=== PATIENT | female | born 1965 | race Hispanic/Latino ===

== ENCOUNTER 2017-09-23 19:14 | Emergency (ER) | payer MEDICAID ==
[2017-09-23 19:38] VITALS: RESP 16
--- NOTE | 2017-09-23 20:33 | C.PDOC ---
History Of Present Illness 52 y/o female presents to the ED complaining of 2 weeks of painful lump to the left side of neck (contrary to triage note). Patient reports increased pain with movement of neck and dysphagia. She states she had a mass there for the past several years but feels it is growing larger. Denies associated numbness, weakness, chest pain, SOB, cough, vomiting, diarrhea, or fever. Time Seen by Provider: 09/23/17 19:55 Chief Complaint (Nursing): Abnormal Skin Integrity History Per: Patient History/Exam Limitations: no limitations Onset/Duration Of Symptoms: Days (x 2 weeks) Current Symptoms Are (Timing): Still Present Quality Of Symptoms: Swollen Past Medical History Reviewed: Historical Data, Nursing Documentation, Vital Signs Vital Signs: Last Vital Signs Temp 98.7 F 09/24/17 00:52 Pulse 60 09/24/17 00:52 Resp 16 09/24/17 00:52 BP 117/85 09/24/17 00:52 Pulse Ox 97 09/24/17 01:12 - Medical History PMH: Asthma (LAST ATTACK 2 WEEKS AGO), Bipolar Disorder, COPD, HTN, Hypercholesterolemia, Migraine, Rheumatoid Arthritis, Schizophrenia, TIA Denies: Chronic Kidney Disease Other Surgeries: Right knee surgery - [facility] Procedures INJECT/INFUSE NEC (11/08/13) NEBULIZER THERAPY (06/14/13) Family History: States: Unknown Family Hx - Social History Hx Tobacco Use: Yes Hx Alcohol Use: No Hx Substance Use: No Review Of Systems Constitutional: Negative for: Fever ENT: Positive for: Other (left neck mass, +pain, +dysphagia) Cardiovascular: Negative for: Chest Pain Respiratory: Negative for: Cough, Shortness of Breath Gastrointestinal: Negative for: Vomiting, Diarrhea Neurological: Negative for: Weakness, Numbness Physical Exam - Physical Exam Appears: Non-toxic, No Acute Distress Skin: Warm, Dry, No Rash Head: Atraumatic, Normacephalic Eye(s): bilateral: Normal Inspection, PERRL, EOMI Ear(s): Bilateral: Normal Throat: Normal, No Erythema, No Exudate, No Drooling Neck: Paracervical Tenderness (left-sided, + muscular spasm), Other (3 cm tender erythematous mass to the left anterior neck) Chest: Tenderness (left chest wall tenderness) Cardiovascular: Rhythm Regular, No Murmur Respiratory: Normal Breath Sounds, No Rales, No Rhonchi, No Wheezing Gastrointestinal/Abdominal: Soft, No Tenderness, No Guarding, No Rebound Extremity: Bilateral: Atraumatic, Normal ROM Neurological/Psych: Oriented x3, Normal Speech, No Other (focal deficits) Gait: Steady ED Course And Treatment - Laboratory Results Result Diagrams: 09/23/17 20:43 09/23/17 20:43 O2 Sat by Pulse Oximetry: 97 (RA) Pulse Ox Interpretation: Normal - CT Scan/US CT Chest Other Rad Studies (CT/US): Read By Radiologist, Radiology Report Reviewed CT/US Interpretation: FINDINGS: Within the right kidney, there is a large cyst with either an internal septation or a smaller adjacent. cyst. The cyst measures 3.3 x 5.3 cm. Hounsfeld units are slightly greater than typically seen w. simple cyst suggesting internal components may be slightly complex area and followup is. recommended. Multiple smaller subcentimeter hypoattenuating right renal lesions are present also likely cysts. although too small to definitively characterize at this time. Extensive centrilobular emphysematous changes are present in the upper lungs and to a much. lesser the lower lungs. Scarring in the right upper lung. No pulmonary embolism identified on 2.5 mm slice thickness. No aortic dissection or aneurysm. No pleural or pericardial effussions. IMPRESSION: No acute findings. Thank you for allowing us to participate in the care of your patient. Dictated and Authenticated by: Patti Sheikh MD. 09/24/2017 12:18 AM Eastern Time ([place] & [place]) CT neck Other Rad Studies (CT/US): Read By Radiologist, Radiology Report Reviewed CT/US Interpretation: FINDINGS: The sinuses are clear. There is fluid in the right mastoid air cells and in the right middle auditory canal concerning for otitis. media and mastoiditis that could be either acute or chronic. Clinical correlation is recommended. There is a skin BB placed in the left lateral neck. There is a small well circumscribed robles shaped. soft tissue density measuring 1.2 x 0.5 by 1.3 cm underlying the BB-marker in appearance consistent. with lymph node. There is no significant stranding in the surrounding fat to suggest that is inflamed. (lymphadenitis). No abscess. The airway is patent. The osseous structures are normal. The vasculature is normal. IMPRESSION: Fluid in the right auditory canal and right mastoid air cells possible otitis media and mastoiditis. Thank you for allowing us to participate in the care of your patient. Dictated and Authenticated by: Patti Sheikh MD. 09/24/2017 12:32 AM Eastern Time ([place] & [place]) Medical Decision Making Medical Decision Making: Differential Diagnosis includes, but is not limited to: possible abscess vs mass Old records reviewed, the patient has no prior visits from this year or last year. [place] prescription [place] website reviewed and the patient has no prescription of narcotics from this year. Time: 21:33 Plan: * CT Chest * CT Neck Soft Tissue * Blood work * Toradol 30 mg IVP On first re-exam, the patient reports that she continues to have pain Percocet ordered. CT findings discussed with patient in detail, all questions answered. The case was discussed with Dr. Berry (ENT oncall) who states that the patient is has no fever, elevated WBC or symptoms. He reviewed the CT and feels that there is no mastoiditis and only otitis media. Dr. Berry states that patient is able to be discharged home and will follow up outpatient in 1-2 days without fail. Disposition - Disposition Referrals: Isaiah Berry MD [Staff Provider] - Disposition: HOME/ ROUTINE Disposition Time: 01:12 Condition: FAIR Additional Instructions: Follow up with the medical doctor within 1-2 days without fail. Return if worsened. Prescriptions: Acetaminophen/Codeine [Tylenol/Codeine 300 MG/30 MG] 1 tab PO Q8 PRN #10 tab PRN Reason: Pain, Severe (8-10) Clindamycin [Cleocin] 300 mg PO TID #30 cap Instructions: Ear Infections (Otitis Media) (DC) Forms: [employer] (Yi) - Clinical Impression Clinical Impression: Otitis media, Lymphadenopathy - PA / ATG ARCHITECT / Resident Statement MD/DO has reviewed & agrees with the documentation as recorded. - Scribe Statement The provider has reviewed the documentation as recorded by the Scribe (Suzie Green) All medical record entries made by the Scribe were at my direction and personally dictated by me. I have reviewed the chart and agree that the record accurately reflects my personal performance of the history, physical exam, medical decision making, and the department course for this patient. I have also personally directed, reviewed, and agree with the discharge instructions and disposition.
[2017-09-23 20:46] LABS: BASO # 0.1 K/uL (0.0-0.2); BASO % 1.1 % (0.0-2.0); EOS # 0.4 K/uL (0.0-0.7); EOS % 6.1 % (0.0-4.0); HEMOGLOBIN 13.6 g/dL (11.0-16.0); LYMPH # 2.7 K/uL (1.0-4.3); LYMPH % 37.3 % (20.0-40.0); MEAN CELL VOLUME 95.3 fL (81.0-99.0); MEAN CORPUSCULAR HEMOGLOBIN 33.5 pg (27.0-31.0); MEAN CORPUSCULAR HGB CONC 35.2 g/dL (33.0-37.0); MEAN PLATELET VOLUME 8.9 fL (7.2-11.7); MONO # 0.8 K/uL (0.0-0.8); MONO % 10.6 % (0.0-10.0); NEUT # 3.2 K/uL (1.8-7.0); NEUT % 44.9 % (50.0-75.0); NRBC % 0.1 % (0.0-2.0); RBC 4.05 Mil/uL (3.80-5.20); RED CELL DISTRIBUTION WIDTH 13.8 % (11.5-14.5); WHITE BLOOD COUNT 7.1 K/uL (4.8-10.8)
[2017-09-23 20:58] LABS: ALB/GLOB RATIO 1.3 (1.0-2.1); ALT/SGPT 22 U/L (9-52); AST/SGOT 21 U/L (14-36); BLOOD UREA NITROGEN 9 mg/dL (7-17); CALCIUM 9.2 mg/dl (8.6-10.4); GFR AFRICAN-AMERICAN > 60; GFR NON-AFRICAN AMERICAN > 60
[2017-09-23] MEDS ORDERED: Iodixanol 320 MG/ML 100 ML BOTTLE IV ONE (21:55)
[2017-09-23] MEDS ORDERED: Oxycodone/Acetaminophen 5/325 mg Tab PO STA (23:01)
[2017-09-23] MEDS ORDERED: Oxycodone/Acetaminophen 5/325 mg Tab ONE (23:06)
[2017-09-23] MEDS ORDERED: Morphine 4 MG/ML VIAL ONE (23:43)
--- NOTE | 2017-09-24 00:19 | CT ---
EXAM: CT Chest With Intravenous Contrast EXAM DATE/TIME: 09/23/2017 9:49 PM CLINICAL HISTORY: 52 years old, female; Signs and symptoms; Shortness of breath; Additional info: SOB TECHNIQUE: Axial computed tomography images of the chest with intravenous contrast. All CT scans at this facility use one or more dose reduction techniques, viz.: automated exposure control; ma/kV adjustment per patient size (including targeted exams where dose is matched to indication; i.e. head); or iterative reconstruction technique. Coronal and sagittal reformatted images were created and reviewed. CONTRAST: 50 mL of [id number] administered intravenously. COMPARISON: No relevant prior studies available. FINDINGS: Within the right kidney, there is a large cyst with either an internal septation or a smaller adjacent cyst. The cyst measures 3.3 x 5.3 cm. Hounsfeld units are slightly greater than typically seen w simple cyst suggesting internal components may be slightly complex area and followup is recommended. Multiple smaller subcentimeter hypoattenuating right renal lesions are present also likely cysts although too small to definitively characterize at this time. Extensive centrilobular emphysematous changes are present in the upper lungs and to a much lesser the lower lungs. Scarring in the right upper lung. No pulmonary embolism identified on 2.5 mm slice thickness. No aortic dissection or aneurysm. No pleural or pericardial effussions. IMPRESSION: No acute findings.
--- NOTE | 2017-09-24 00:32 | CT ---
EXAM: CT Neck With Intravenous Contrast EXAM DATE/TIME: 09/23/2017 8:30 PM CLINICAL HISTORY: 52 years old, female; Signs and symptoms; Mass, lump, or swelling in neck; Additional info: Swel, pain neck chest possible abscess in neck TECHNIQUE: Axial computed tomography images of the neck with intravenous contrast. All CT scans at this facility use one or more dose reduction techniques, viz.: automated exposure control; ma/kV adjustment per patient size (including targeted exams where dose is matched to indication; i.e. head); or iterative reconstruction technique. Coronal and sagittal reformatted images were created and reviewed. CONTRAST: 50 mL of [id number] administered intravenously. COMPARISON: No relevant prior studies available. FINDINGS: The sinuses are clear. There is fluid in the right mastoid air cells and in the right middle auditory canal concerning for otitis media and mastoiditis that could be either acute or chronic. Clinical correlation is recommended. There is a skin BB placed in the left lateral neck. There is a small well circumscribed robles shaped soft tissue density measuring 1.2 x 0.5 by 1.3 cm underlying the BB-marker in appearance consistent with lymph node. There is no significant stranding in the surrounding fat to suggest that is inflamed (lymphadenitis). No abscess. The airway is patent. The osseous structures are normal. The vasculature is normal. IMPRESSION: Fluid in the right auditory canal and right mastoid air cells possible otitis media and mastoiditis.
[2017-09-24 00:53] VITALS: BP 117/85; PULSE 60; TEMP 98.7
[2017-09-24 01:10] VITALS: O2SAT 97
== END 2017-09-24 01:20 | disposition home or self-care (01) ==
LOC: C.ER 19:14
DX: R59.1 Generalized enlarged lymph nodes (principal); H66.90 Otitis media, unspecified, unspecified ear; I10 Essential (primary) hypertension; E78.00 Pure hypercholesterolemia, unspecified; F17.210 Nicotine dependence, cigarettes, uncomplicated
CPT/HCPCS: 70491; 71260; 80053; 85025; 96374; 96375; 99284; J1885; J2270; Q9967

== ENCOUNTER 2018-01-15 06:48 | Day surgery (SDC) | payer MEDICAID ==
[~2018-01-15 06:48] MED LIST: Ofloxacin 0.3% Ophth Soln ONE
[2018-01-15] MEDS ORDERED: Dextrose 5%/0.45% NS 1,000 ML IV SCH (09:30)
[2018-01-15] MEDS ORDERED: Lactated Ringer's 1,000 ML IV ONE (09:45)
[2018-01-15] MEDS ORDERED: Propofol 10 mg/ml Inj (20 ML) ONE (09:50)
[2018-01-15] MEDS ORDERED: Clindamycin 600mg/50ml NS 0 MG/0 ML BAG IVPB ONE (09:52)
[2018-01-15] MEDS ORDERED: Lactated Ringer's 1,000 ML IV SCH (10:15)
[2018-01-15 11:12] VITALS: RESP 18
[2018-01-15 12:01] VITALS: BP 102/68; PULSE 64; TEMP 97.2; O2SAT 95
--- NOTE | 2018-01-15 21:31 | OP ---
Copied To: Isaiah Berry MD Attending MD: Isaiah Berry MD PROCEDURE DATE: 01/15/2018 PREOPERATIVE DIAGNOSIS: Right chronic otitis media. POSTOPERATIVE DIAGNOSIS: Right chronic otitis media. PROCEDURE: Right myringotomy with tubes. SIGNIFICANT FINDINGS: TM retracted and draping the medial wall with middle ear cavity/promontory. DESCRIPTION OF PROCEDURE: The patient was brought into room, placed in supine position. Anesthesia was initiated through facemask. The head was turned. The right ear was brought to view using operative microscope and ear speculum. The TM was noted to be severely retracted and draping on the promontory. Radial incision was made in the anteroinferior quadrant. Tube was placed. Floxin was placed. The microscope and ear speculum were taken out of position. The patient was taken off anesthesia and taken to recovery room in stable manner. Isaiah Berry MD
== END 2018-01-15 12:04 | disposition home or self-care (01) ==
LOC: C.SDS 06:48
PROVIDERS: ATTEND Otolaryngology
DX: H66.11 Chronic tubotympanic suppurative otitis media, right ear (principal)
CPT/HCPCS: 69436; J2704; J7040; J7120

== ENCOUNTER 2018-07-25 11:26 | Outpatient (CLI) | payer MEDICAID | END 2018-07-25 11:27 | disposition home or self-care (01) | LOC: C.RADH 11:26 | DX: M54.17 Radiculopathy, lumbosacral region (principal); M54.13 Radiculopathy, cervicothoracic region ==

== ENCOUNTER 2018-10-28 13:42 | Outpatient (CLI) | payer MEDICAID | END 2018-10-28 13:43 | disposition home or self-care (01) | LOC: C.USIC 13:43 | DX: R42 Dizziness and giddiness (principal); G44.1 Vascular headache, not elsewhere classified ==